=== PATIENT | female | born 1995 | race Caucasian/White ===

== ENCOUNTER 2018-04-15 14:02 | Emergency (ER) | payer MEDICAID, OTHER ==
[2018-04-15 14:25] VITALS: BP 97/59
--- NOTE | 2018-04-15 15:13 | ED ---
GI/ HPI - HPI Summary HPI Summary: 23 yr old with the complaint of Nausea, breast tenderness, fatigue, and not a full period last week. The patient reports her last normal period was in early February. She was late in early March for her period. She took home HCG tests that were positive. She went to her PMD and states a urine HCG was positive, but then a blood hcg done was negative. On April 05 she had cramping and bleeding for two days, but did not have a full length period. She presently hasno vaginal bleeding and no cramping in her abdomen. - History of Current Complaint Chief Complaint: UCGeneralIllness Time Seen by Provider: 04/15/18 14:47 Stated Complaint: CRAMPING,NAUSEA (POSSIBLE ) Hx Last Menstrual Period: 04/05 2 days of spotting Pain Intensity: 0 - Allergy/Home Medications Allergies/Adverse Reactions: Allergies Allergy/AdvReac Type Severity Reaction Status Date / Time Latex, Natural Rubber Allergy Rash Verified 04/15/18 14:21 Home Medications: Home Medications NK [No Home Medications Reported] 04/15/18 [History Confirmed 04/15/18] PMH/Surg Hx/FS Hx/Imm Hx - Surgical History Surgery Procedure, Year, and Place: appendectomy. wisdom teeth Infectious Disease History: No Infectious Disease History: Denies: Traveled Outside the [place] in Last 30 Days - Family History Known Family History: Positive: None - Social History Lives: With Family Alcohol Use: Rare Substance Use Type: Reports: None Smoking Status (MU): Heavy Every Day Tobacco Smoker Type: Cigarettes Amount Used/How Often: 1/2 ppd Review of Systems Positive: Fatigue Positive: Nausea All Other Systems Reviewed And Are Negative: Yes Physical Exam Triage Information Reviewed: Yes Vital Signs On Initial Exam: Initial Vitals Temp Pulse Resp BP Pulse Ox 98.5 F 102 15 97/59 99 04/15/18 14:17 04/15/18 14:17 04/15/18 14:17 04/15/18 14:17 04/15/18 14:17 Vital Signs Reviewed: Yes Appearance: Positive: Well-Appearing, No Pain Distress Skin: Positive: Warm Head/Face: Positive: Normal Head/Face Inspection Eyes: Positive: EOMI ENT: Positive: Normal ENT inspection Respiratory/Lung Sounds: Positive: Clear to Auscultation, Breath Sounds Present Cardiovascular: Positive: RRR. Negative: Murmur Abdomen Description: Positive: Nontender. Negative: CVA Tenderness (R), CVA Tenderness (L) Musculoskeletal: Positive: Strength/ROM Intact Neurological: Positive: Sensory/Motor Intact, Alert, Oriented to Person Place, Time, CN Intact II-III, Normal Gait, Speech Normal Psychiatric: Positive: Normal - [place] Coma Scale Best Eye Response: 4 - Spontaneous Best Motor Response: 6 - Obeys Commands Best Verbal Response: 5 - Oriented Coma Scale Total: 15 Diagnostics - Vital Signs Vital Signs Temp Pulse Resp BP Pulse Ox 04/15/18 14:17 98.5 F 102 15 97/59 99 - Laboratory Lab Results: Lab Results 04/15/18 04/15/18 Range/Units 14:29 14:31 POC Urine Color Yellow POC Urine Clarity Clear POC Urine pH 5.5 (5-9) POC Ur Specif [place] >= 1.030 (1.010-1.030) POC Urine Protein Trace A (Negative) POC Ur Glucose (UA) Negative (Negative) POC Urine Ketones Negative (Negative) POC Urine Blood Negative (Negative) POC Urine Nitrite Negative (Negative) POC Urine Bilirubin 1+ A (Negative) POC Urine Urobilinogen 0.2 (Negative) POC U Leukocyte Esteras Negative (Negative) POC Ur Test Negative (Negative) Lab Statement: Any lab studies that have been ordered have been reviewed, and results considered in the medical decision making process. GIGU Course/Dx - Course Course Of Treatment: 23 yr old with negative hcg here. She will follow up with PMD. - Diagnoses Provider Diagnoses: Nausea Discharge - Sign-Out/Discharge Documenting (check all that apply): Discharge/Admit/Transfer - Discharge Plan Condition: Good Disposition: HOME Patient Education Materials: Acute Nausea and Vomiting (ED) Referrals: Altaf Stacy MD [Primary Care Provider] - 1 Day Additional Instructions: Your urine test is negative here today. You should follow up with your primary doctor for any further questions. - Billing Disposition and Condition Condition: GOOD Disposition: Home
== END 2018-04-15 15:39 | disposition home or self-care (01) ==
LOC: UCCORT 14:02
DX: R11.0 Nausea (principal); F17.210 Nicotine dependence, cigarettes, uncomplicated
CPT/HCPCS: 81003; 84702; 99211; G0463